=== PATIENT | male | born 1945 | race Caucasian/White ===

== ENCOUNTER 2018-01-29 06:05 | Inpatient (IN) ==
[2018-01-29] MEDS ORDERED: ceFAZolin 2 GM Premix Inj 0 GM/0 ML PIGGYBACK IV.SIG ONE (06:28)
[2018-01-29] MEDS ORDERED: Protamine Sulfate Inj 50 MG/5 ML Vial ONE (06:28)
[2018-01-29] MEDS ORDERED: Bupivacaine/Epinephrine PF Inj 0.5% 30 ML Vial ONE (06:28)
[2018-01-29] MEDS ORDERED: Metoprolol Tartrate 25 MG Tablet PO ONE (06:53)
[2018-01-29] MEDS ORDERED: Chlorhexidine Gluconate 2% 1 Pack (2 Cloths) TOPICAL ONE (06:53)
[2018-01-29] MEDS ORDERED: Sodium Chlor 0.9% Inj 500 ML IV.SIG SCH (07:00)
[2018-01-29] MEDS ORDERED: ceFAZolin 1 GM Premix Inj 1 GM/50 ML FROZ.PIGGY IV.SIG ONE (07:00)
[2018-01-29 07:14] LABS: Baso # (Auto) 0.1 th/mm3 (0.0-0.2); Baso % (Auto) 0.8 % (0.0-2.0); Eos # (Auto) 0.4 th/mm3 (0.0-0.4); Eos % (Auto) 5.1 % (0.0-4.0); Hematocrit 43.9 % (39.0-51.0); Hemoglobin 14.7 gm/dL (13.0-17.0); Lymph % (Auto) 26.5 % (9.0-44.0); Mean Corpuscular HGB Conc 33.6 % (32.0-36.0); Mean Corpuscular Hemoglobin 30.4 pg (27.0-34.0); Mean Corpuscular Volume 90.7 fL (80.0-100.0); Mean Platelet Volume 6.5 fL (7.0-11.0); Mono # (Auto) 0.8 th/mm3 (0.0-0.9); Neut # (Auto) 4.3 th/mm3 (1.8-7.7); Neut % (Auto) 56.6 % (16.0-70.0); Platelet Count 280 th/mm3 (150-450); Red Blood Count 4.84 mil/mm3 (4.50-5.90); Red Cell Distribution Width 14.5 % (11.6-17.2); White Blood Count 7.5 th/mm3 (4.0-11.0)
[2018-01-29] MEDS ORDERED: Lidocaine PF 1% Inj 5 ML Syringe OTHER ONE (07:56)
[2018-01-29] MEDS ORDERED: Esmolol Bolus Inj 100 MG/10 ML Vial IV.PUSH ONE (07:56)
[2018-01-29] MEDS ORDERED: Normosol-R pH 7.4 Inj 1,000 ML IV.CONT ONE (07:56)
[2018-01-29] MEDS ORDERED: Heparin - SQ 10,000 UNITS/ML Vial ONE (08:05)
[2018-01-29] MEDS: Heparin 10,000 UNITS/10 ML Vial (for IV use) ONE ×2 (09:00→09:05)
[2018-01-29] MEDS ORDERED: Iohexol 300 MG/ML 50 ML Vial (for Rad Diag) IVCONTRAST ONE ×2 (10:20→10:21)
[2018-01-29] MEDS ORDERED: fentaNYL Citrate Inj 100 MCG/2 ML Ampul ONE (10:50)
[2018-01-29] MEDS ORDERED: Sugammadex Inj 200 MG/2 ML Vial IV.PUSH ONE (10:50)
[2018-01-29] MEDS ORDERED: *morphine SULFATE 4 MG/ML PERIprocedure ONLY ONE ×2 (10:55→11:06)
--- NOTE | 2018-01-29 11:13 | P.OP ---
- Preoperative Diagnosis (1) Aortic aneurysm - Postoperative Diagnosis (1) Aortic aneurysm Date of procedure: 01/29/18 Procedure: Percutaneous Endovascular Aneurysm Repair Surgeon: Grzegorz Worrell MD Estimated blood loss (mL): 50
[2018-01-29] MEDS ORDERED: *HYDROmorphone PF Inj 1 MG/ML Ampul PERIprocedural Use ONLY ONE (11:20)
--- NOTE | 2018-01-29 12:45 | ECG ---
Date Performed: 01/29/2018 Time Performed: 06:53:12 PTAGE: 73 years EKG: SINUS BRADYCARDIA BORDERLINE ECG NO PREVIOUS TRACING DOCTOR: Soha Monae Interpretating Date/Time 01/29/2018 12:41:42
--- NOTE | 2018-01-29 18:49 | MP ---
cc: Grzegorz Worrell MD, Dina DO DATE OF OPERATION: 01/29/2018 PREOPERATIVE DIAGNOSIS: A 5.7 cm infrarenal abdominal aortic aneurysm. POSTOPERATIVE DIAGNOSIS: A 5.7 cm infrarenal abdominal aortic aneurysm. PROCEDURE: Percutaneous endovascular aneurysm repair. SURGEON: Grzegorz Worrell MD [employer] PRINCIPAL: GAVIOTA Goodman ANESTHESIA: General endotracheal/local. DESCRIPTION OF THE OPERATIVE PROCEDURE: With the patient in the supine position, general endotracheal anesthesia was induced, the abdomen, both groins and thighs prepped with Betadine and draped in a sterile fashion. Then, 2 grams of Ancef were administered intravenously and following a protocol timeout, skin and subcutaneous tissues directly overlying the proposed right and left common femoral access sites preemptively infiltrated with 0.5% Marcaine with epinephrine. Utilizing ultrasound guidance, 18-gauge needles were inserted into the right and left mid common femoral lumens, J wires were advanced under fluoroscopic guidance into the iliac arteries and 7-[place]ian hemostatic sheaths were deployed over the J wires. Angled Glidewires were then negotiated under fluoroscopic guidance into the suprarenal aorta. Perclose devices were prepositioned at the 2 and 10 o'clock positions bilaterally. The angled Glidewires were then exchanged over Berenstein catheters for Amplatz wires, which were parked within the descending thoracic aorta. An 18-[place]ian and a 12-[place]ian hemostatic sheath were deployed via the right and left femoral approaches respectively. The patient was systemically heparinized with 5000 units. A marker pigtail catheter was then delivered via the left femoral sheath into the suprarenal aorta. Flush aortogram accurately outlined origins of both renal arteries. The main body endoprosthesis was delivered via the right femoral sheath, positioned and predeployed immediately distal to the origin of the renal arteries. The contralateral gate was engaged with a Berenstein angled Glidewire combination. A compliant balloon was then advanced into the endoprosthetic lumen and partially inflated to ensure accurately intraluminal localization. A marker pigtail catheter was then advanced via the left femoral sheath into the main body endoprosthesis and diluted contrast retrogradely injected via the left femoral sheath to outline the origin of the hypogastric artery and allow appropriate length selection for the contralateral iliac limb. The contralateral limb was then delivered and deployed. Repeat flush aortogram again accurately delineated the renal artery origins and the aortic deployment was completed. Prior to completion of the main body deployment, retrograde right femoral sheath injection accurately delineated the right hypogastric, and the right iliac limb was deployed immediately proximal to the right iliac bifurcation. The compliant balloon was then utilized to gently dilate the seal zones and overlap areas. Completion angiogram revealed a secure repair with no technical defects. A faint type 2 endoleak along the distal, bifurcation region was apparent. The hemostatic sheaths were removed and hemostasis achieved with completion deployment of the pre-positioned Perclose devices. Heparin was reversed with 30 mg of protamine. At the conclusion of the procedure, pedal pulses remain easily palpable bilaterally. There were no operative complications. The patient returned to the postanesthesia unit in stable condition, having tolerated the procedure well. MD RAISA Bennett/fuentes , 04:17 PM , 04:29 PM
[2018-01-29] MEDS ORDERED: Montelukast 10 MG Tablet PO SCH (21:00)
[2018-01-30 04:05] VITALS: RESP 16
[2018-01-30 08:58] VITALS: BP 111/60; TEMP 98; O2SAT 97
[2018-01-30] MEDS ORDERED: Finasteride 5 MG Tablet PO SCH (09:00)
[2018-01-30 09:05] VITALS: PULSE 52
== END 2018-01-30 10:35 | disposition home or self-care (01) ==
LOC: HSDI 06:05 → HCIS 12:02
PROVIDERS: ADMIT Surgery Vascular Surgery; ATTEND Surgery Vascular Surgery